=== PATIENT | male | born 1960 | race African-American/Black ===

== ENCOUNTER 2020-09-27 23:59 | Emergency (ER) | payer MEDICAID ==
[~2020-09-27] VITALS: Ht 180.3 cm; Wt 75.0 kg
[2020-09-28 00:07] VITALS: BP 139/81
[2020-09-28] MEDS ORDERED: LIDOCAINE HCL/PF 1% 10 MG/ML 5ML VIAL IJ ONE (00:30)
== END 2020-09-28 00:56 | disposition home or self-care (01) ==
LOC: ER 23:59
DX: L02.211 Cutaneous abscess of abdominal wall (principal)
CPT/HCPCS: 10060; 99283; A4217; J3490; Z7610

== ENCOUNTER 2021-04-22 20:38 | Emergency (ER) | payer MEDICAID ==
[~2021-04-22] VITALS: Ht 180.3 cm; Wt 78.0 kg
[2021-04-22] MEDS ORDERED: VANCOMYCIN 1 G PREMIX 200 ML IV ONE (23:00)
[2021-04-22] MEDS ORDERED: LIDOCAINE HCL/PF 1% 10 MG/ML 5ML VIAL INFIL ONE (23:00)
[2021-04-22] MEDS ORDERED: BACITRACIN ZINC OINT UDPKT TOP ONE (23:00)
[2021-04-22] MEDS ORDERED: KETOROLAC 30MG/ML VIAL IV ONE (23:00)
[2021-04-22 23:17] LABS: BASOPHILS % 0.6 % (0.0-2.0); EOSINOPHILS % 2.4 % (0.0-5.0); HEMATOCRIT. 39.4 % (42.0-52.0); HEMOGLOBIN. 13.6 g/dL (14.0-18.0); LYMPHOCYTES % 27.8 % (20.0-50.0); MEAN CORPUSCULAR HEMOGLOBIN 29.2 pg (28.0-32.0); MEAN CORPUSCULAR VOLUME 84.8 fL (80.0-94.0); MEAN PLATELET VOLUME 8.2 fl (7.4-10.4); MONOCYTES % 8.5 % (2.0-8.0); NEUTROPHILS % 60.7 % (40.0-76.0); PLATELET 254 x1000/uL (130-400); RED BLOOD CELL COUNT 4.65 mill/uL (4.7-6.1); RED CELL DISTRIBUTION WIDTH 13.6 % (11.6-14.6)
[2021-04-22 23:21] LABS: CHLORIDE 107 mEq/L (98-107)
[2021-04-22 23:53] VITALS: BP 128/70
[2021-04-23] MEDS ORDERED: CLIN300C12 MT (00:56)
[2021-04-23] MEDS ORDERED: IBUP-2029 MT (00:56)
== END 2021-04-23 01:54 | disposition home or self-care (01) ==
LOC: ER 20:38
DX: L02.411 Cutaneous abscess of right axilla (principal); L03.111 Cellulitis of right axilla
CPT/HCPCS: 10060; 36415; 80053; 85025; 87070; 87077; 87186; 87205; 96374; 96375; 99284; J1885; J3370; J3490; Z7610

== ENCOUNTER 2021-10-23 23:08 | Emergency (ER) | payer MEDICAID ==
[~2021-10-23] VITALS: Ht 180.3 cm; Wt 73.0 kg
[~2021-10-23 23:08] MED LIST: CLIN300C12 MT; IBUP-2029 MT
[2021-10-23] MEDS ORDERED: IBUPROFEN 600MG TABLET PO ONE (23:45)
[2021-10-24] MEDS ORDERED: IBUP-2029 MT (01:01)
[2021-10-24] MEDS ORDERED: TOPUD MT (01:01)
[2021-10-24 02:10] VITALS: BP 137/72
== END 2021-10-24 02:52 | disposition home or self-care (01) ==
LOC: ER 23:08
DX: S82.831A Other fracture of upper and lower end of right fibula, initial encounter for closed fracture (principal); Y93.67 Activity, basketball; Y92.39 Other specified sports and athletic area as the place of occurrence of the external cause
CPT/HCPCS: 29515; 73610; 99283; Z7610